=== PATIENT | male | born 1940 | race Caucasian/White ===

== ENCOUNTER 2017-04-07 12:42 | Inpatient (IN) | payer OTHER, BC ==
[2017-04-07] MEDS ORDERED: SODIUM CHLORIDE 0.9% 1000 ML INFUS.BAG IV STA (13:16)
--- NOTE | 2017-04-07 14:02 | PDOC ---
History of Present Illness - General History Source: Patient, Care Provider Exam Limitations: Dementia - History of Present Illness Initial Comments: 04/07/17 14:13 The patient is a 76 year old male, accompanied by home health aide,with a significant past medical history of hypertension, COPD, CHF Parkinsons, liposarcoma (s/p resection psoas muscle), anemia, MDS, Lewy body dementia, mild proliferative disease, and BPH who presents to the emergency department complaining of confusion since yesterday. Per home health aide, the patient has a history of altered mental status in the past, with his most recent episode beginning yesterday. The patient reports weakness in the upper extremity. He reports some constipation, but denies abdominal pain, nausea, vomiting, diarrhea , melena, or hematochezia. He denies any dysuria, hematuria, frequency, or urgency. The patient has been able to tolerate solids and fluids normally. He denies any recent travel or sick contacts. No history of TIA/CVA. Allergies: None reported Past Surgical History: Psoas muscle resection, Social History: ETOH and marijuana use. No other recreational drug use. PCP: Dr. Mikel Real <Mika Crow - Last Filed: 04/07/17 17:08> <Leslee Das - Last Filed: 04/07/17 17:40> - General Chief Complaint: Altered Mental Status Stated Complaint: Altered Mental Status Time Seen by Provider: 04/07/17 13:03 NIH Stroke Scale - Initial Evaluation Level of consciousness: Alert Ask patient the month and their age: Answers both correctly Ask patient to open & close eyes; make fist and let go: Obeys both correctly Best gaze (horizontal eye movement): Normal Visual field testing: No visual field loss Facial paresis (Show teeth/raise eyebrows/close eyes tight): Normal symmetrical movement Motor Function: Left Arm: Normal Motor Function: Right Arm: Normal (extends arm 90 (or 45) degrees for 10 seconds without drift Motor Function: Left Leg: Normal (extends leg 30 degrees for 5 seconds without drift) Motor Function: Right Leg: Normal (extends leg 30 degrees for 5 seconds without drift) Limb Ataxia: No ataxia Sensory(Use pinprick test arms,legs,trunk,face/side to side): Normal Best language (Describe picture, name items, read sentences): No Aphasia Dysarthria (read several words): Normal articulation Extinction and Inattention: No abnormality - Total Score NIH Stroke Scale Score: 0 <Leslee Das - Last Filed: 04/07/17 17:40> tPA Exclusion checklist 3-4.5h - Thrombolytic Therapy Candidate Is patient eligible for thrombolytic therapy: No - Ineligibility reason(s) Reasons No tPA given: Outside of window - delayed arrival (sxs started day prior ) <Leslee Das - Last Filed: 04/07/17 17:40> Past History <Mika Crow - Last Filed: 04/07/17 17:08> - Past Medical History Anemia: No Asthma: No Cancer: Yes (LIPOSARCOMA resection psoas muscle) Cardiac Disorders: No CVA: No COPD: No CHF: No Dementia: Yes Diabetes: No GI Disorders: No Disorders: No HTN: No Hypercholesterolemia: No Liver Disease: No Seizures: No Thyroid Disease: No Other medical history: PARKINSONS, BPH - Surgical History Abdominal Surgery: Yes Appendectomy: No Cardiac Surgery: No Cholecystectomy: No Lung Surgery: No Neurologic Surgery: No Orthopedic Surgery: No - Psycho/Social/Smoking Cessation Hx Anxiety: No Suicidal Ideation: No Smoking Status: No Smoking History: Never smoked Have you smoked in the past 12 months: Yes Number of Cigarettes Smoked Daily: 0 If you are a former smoker, when did you quit?: 1989 Alcohol Use: No Drug/Substance Use Hx: No Substance Use Type: Alcohol, Marijuana Hx Substance Use Treatment: No <Leslee Das - Last Filed: 04/07/17 17:40> - Past Medical History Allergies/Adverse Reactions: Allergies Allergy/AdvReac Type Severity Reaction Status Date / Time No Known Allergies Allergy Verified 04/07/17 12:49 Home Medications: Ambulatory Orders Donepezil HCl [Aricept -] 5 mg PO HS 04/09/16 Duloxetine HCl [Cymbalta] 30 mg PO BID 04/09/16 Acetaminophen [Tylenol .Regular Strength -] 650 mg PO Q6H PRN #0 tablet Carbidopa/Levodopa *Cr* 25/100 [Sinemet *Cr* 25/100 -] 1 combo PO TIDCM #90 tablet.er 04/30/16 Carvedilol [Coreg -] 3.125 mg PO BID #60 tablet 04/30/16 Hydroxyurea [Hydrea 500Mg Capsule -] 500 mg PO BID #30 capsule 04/30/16 Valsartan [Diovan] 40 mg PO DAILY #30 tablet 04/30/16 Aspirin Coated [Ecotrin -] 81 mg PO DAILY tablet.ec 05/15/16 Finasteride 5 mg PO DAILY 04/07/17 Quetiapine Fumarate [Seroquel -] 25 mg PO HS 04/07/17 Tamsulosin HCl 0.4 mg PO DAILY 04/07/17 Review of Systems - Review of Systems Able to Perform ROS?: Yes Comments:: 04/07/17 14:13 GENERAL/CONSTITUTIONAL: Yes: +weakness. No fever or chills. HEAD, EYES, EARS, NOSE AND THROAT: No change in vision. No ear pain or discharge. No sore throat. CARDIOVASCULAR: No chest pain or shortness of breath. RESPIRATORY: No cough, wheezing, or hemoptysis. GASTROINTESTINAL: No nausea, vomiting, diarrhea or constipation. GENITOURINARY: No dysuria, frequency, or change in urination. MUSCULOSKELETAL: No joint or muscle swelling or pain. No neck or back pain. SKIN: No rash NEUROLOGIC: Yes: +altered mental status. No headache, vertigo, loss of consciousness, or change in strength/sensation. ENDOCRINE: No increased thirst. No abnormal weight change. HEMATOLOGIC/LYMPHATIC: No anemia, easy bleeding, or history of blood clots. ALLERGIC/IMMUNOLOGIC: No hives or skin allergy. <Mika Crow - Last Filed: 04/07/17 17:08> *Physical Exam - Vital Signs Last Vital Signs Temp Pulse Resp BP Pulse Ox 98.0 F 63 20 146/69 97 04/07/17 12:44 04/07/17 12:44 04/07/17 12:44 04/07/17 12:44 04/07/17 12:44 - Physical Exam Comments: 04/07/17 14:13 GENERAL: Awake, alert, and fully oriented, in no acute distress HEAD: No signs of trauma EYES: PERRLA, EOMI, sclera anicteric, conjunctiva clear ENT: Auricles normal inspection, hearing grossly normal, nares patent. Dry mucosa NECK: Normal ROM, supple, no lymphadenopathy, JVD, or masses LUNGS: Breath sounds equal, clear to auscultation bilaterally. No wheezes, and no crackles HEART: Regular rate and rhythm, normal S1 and S2, no murmurs, rubs or gallops ABDOMEN: Soft, nontender, normoactive bowel sounds. No guarding, no rebound. No masses EXTREMITIES: Normal range of motion, no edema. No clubbing or cyanosis. No cords , erythema, or tenderness. DP/PT pulses 2+ and symmetric. Strength 5/5 in upper and lower extremities. NEUROLOGICAL: Moves all extremities. Normal speech, normal gait. Face is symmetric. Cranial nerves intact. SKIN: Warm, Dry, normal turgor, no rashes or lesions noted. <Mika Crow - Last Filed: 04/07/17 17:08> - Vital Signs Last Vital Signs Temp Pulse Resp BP Pulse Ox 98.0 F 63 20 146/69 97 04/07/17 12:44 04/07/17 12:44 04/07/17 12:44 04/07/17 12:44 04/07/17 12:44 <Leslee Das - Last Filed: 04/07/17 17:40> Heart Score/ECG Review #1 General ECG Interpretation: Sinus Rhythm (sinus janice), Normal Rate (59), Normal Intervals, No acute ischemic changes - ECG Intrepretation Rhythm: Regular Rhythm - Halma Halma: Left Halma Deviation <Leslee Das - Last Filed: 04/07/17 17:40> ED Treatment Course - LABORATORY CBC & Chemistry Diagram: 04/07/17 14:11 04/07/17 14:11 - RADIOLOGY Radiograph Interpretation: 04/07/17 14:44 EXAM: CXR INTERPRETED BY: Dr. Kendall REVIEWED BY: Dr. Das IMPRESSION: Cardiomegaly without overt heart failure seen at this time. No infiltrates or consolidations seen. EXAM: Head CT INTERPRETED BY: Dr. Kendall REVIEWED BY: Dr. Das IMPRESSION: Fluid in several left mastoid air cells. 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 Small left pontine lacunar infarct, possibly but not definitively new. Correlate with MRI. Otherwise normal noncontrast CT of the brain except for involutional and periventricular white matter changes. <Mika Crow - Last Filed: 04/07/17 17:08> - LABORATORY CBC & Chemistry Diagram: 04/07/17 14:11 04/07/17 14:11 - RADIOLOGY Radiology Studies Ordered: Category Date Time Status HEAD CT WITHOUT CONTRAST [CT] Stat CT Scan 04/07/17 13:20 Ordered CHEST X-RAY PORTABLE* [RAD] Stat Radiology 04/07/17 13:18 Completed <Leslee Das - Last Filed: 04/07/17 17:40> Medical Decision Making - Medical Decision Making 04/07/17 16:43 First call placed to Dr. Mikel Real at 16:42. Awaiting call back. Second call placed to Dr. Real at 17:07. Awaiting call back. Case discussed with Dr. Mikel Real at 17:09. <Mika Crow - Last Filed: 04/07/17 17:08> - Medical Decision Making 04/07/17 13:57 76 yo male with h/o parkinsons, HTN, blood dyscrasia and thromobocytopenia here with confusion since yesterday, pt here with home health aid who provides additional information states noted pt was confused since yesteerday. no known fever, cough or chest pain. c/o generalized weakness. no focal deficit no change to speech. no diarreha. no prior cva. on exam awake, alert dry mucous membranes, lung clear bilat, heart Reg, no m/r/ g. abd soft NT ND. ext wwp nuero alert 5/5 all four ext. facies symmetric CN intact. plan ; differential: confusion, anemia, electrolyte abnormality infection such as uti or pna, plan ct head, labs, cxr ekg. will d/w pt pcp dr real. 04/07/17 17:11 d/w dr real, ct with age indeterminate cva possible old . non focal exam and sxs started yesterday. will admit to dr real for further workup ams. <Leslee Das - Last Filed: 04/07/17 17:40> *DC/Admit/Observation/Transfer - Attestations Scribe Attestion: 04/07/17 14:16 Documentation prepared by Mika Crow, acting as clinical medical transcriptionist for Leslee Das MD. <Mika Crow - Last Filed: 04/07/17 17:08> - Discharge Dispostion Admit: Yes <Leslee Das - Last Filed: 04/07/17 17:40> Diagnosis at time of Disposition: Altered mental status - Referrals Referrals: Mikel Real MD [Primary Care Provider] -
[2017-04-07 14:27] LABS: EOSINOPHIL 1.5 % (0-4.5); MCH 31.2 pg (25.7-33.7); MCHC 33.7 g/dl (32.0-35.9); MEAN CELL VOLUME 92.7 fl (80-96); NEUTROPHILS 71.8 % (42.8-82.8); PLATELET COUNT 388 K/MM3 (134-434); RDW 17.3 % (11.9-15.9); WHITE BLOOD COUNT 8.3 K/mm3 (4.0-10.0)
[2017-04-07 14:33] LABS: URINE APPEARANCE CLEAR; URINE BILIRUBIN NEGATIVE (NEGATIVE); URINE BLOOD NEGATIVE (NEGATIVE); URINE COLOR YELLOW; URINE GLUCOSE (UA) NEGATIVE (NEGATIVE); URINE KETONE TRACE (NEGATIVE); URINE LEUK ESTERASE NEGATIVE (NEGATIVE); URINE NITRITE NEGATIVE (NEGATIVE); URINE UROBILINOGEN NEGATIVE E.U./dl (0.2-1.0)
[2017-04-07 14:36] LABS: URINE PROTEIN 1+ (NEGATIVE)
[2017-04-07 14:43] LABS: VENOUS BLOOD GAS HCO3 23.5 meq/L (19-25); VENOUS PH 7.44 (7.32-7.42)
[2017-04-07 14:48] LABS: INR 1.33 (0.82-1.09); PROTHROMBIN TIME (PATIENT) 14.7 SEC (9.98-11.88)
[2017-04-07 14:51] LABS: ACTIVATED PTT 36.5 SECONDS (26.9-34.4)
[2017-04-07 14:57] LABS: ALBUMIN 3.6 g/dl (3.4-5.0); ALK PHOS 75 U/L (45-117); ANION GAP 8 (8-16); BILIRUBIN,TOTAL 0.7 mg/dL (0.2-1.0); CALCIUM 8.5 mg/dL (8.5-10.1); CO2 26 mmol/L (21-32); CREATININE 0.7 mg/dL (0.7-1.3); GLUCOSE,RANDOM 92 mg/dL (74-106); SGOT/AST 19 U/L (15-37); SGPT/ALT 17 U/L (12-78)
[2017-04-07 14:59] LABS: TROPONIN I < 0.02 ng/ml (0.00-0.05)
[2017-04-07 15:51] LABS: URINE MUCUS RARE; URINE RBC <1 /hpf (0-3); URINE WBC 1 /hpf (3-5)
--- NOTE | 2017-04-07 23:35 | HP ---
Admitting History and Physical - Primary Care Physician PCP: Mikel Real - Admission Chief Complaint: Confusion. Palpitations History of Present Illness: Pt's called today that pt is confused since yesterday and c/o papitations; she called pt's Neurologist that adviced PCP visit and UA. I adviced pt's to take him to ER [facility]. In ER he was found to have abnormal Head CT, probable new CVA and was admitted. 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, [employer]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 [employer] Medical History of Recent Travel: No Home Medications - Allergies Allergies/Adverse Reactions: Allergies Allergy/AdvReac Type Severity Reaction Status Date / Time No Known Allergies Allergy Verified 04/07/17 12:49 - Home Medications Home Medications: Ambulatory Orders Donepezil HCl [Aricept -] 5 mg PO HS 04/09/16 Duloxetine HCl [Cymbalta] 30 mg PO BID 04/09/16 Acetaminophen [Tylenol .Regular Strength -] 650 mg PO Q6H PRN #0 tablet Carbidopa/Levodopa *Cr* 25/100 [Sinemet *Cr* 25/100 -] 1 combo PO TIDCM #90 tablet.er 04/30/16 Carvedilol [Coreg -] 3.125 mg PO BID #60 tablet 04/30/16 Hydroxyurea [Hydrea 500Mg Capsule -] 500 mg PO BID #30 capsule 04/30/16 Valsartan [Diovan] 40 mg PO DAILY #30 tablet 04/30/16 Aspirin Coated [Ecotrin -] 81 mg PO DAILY tablet.ec 05/15/16 Finasteride 5 mg PO DAILY 04/07/17 Quetiapine Fumarate [Seroquel -] 25 mg PO HS 04/07/17 Tamsulosin HCl 0.4 mg PO DAILY 04/07/17 Review of Systems - Review of Systems Constitutional: denies: Chills, Fever Eyes: denies: Blurred Vision, Eye Pain, Recent Change in Vision HENT: denies: Difficult Swallowing, Ear Discharge, Ear Pain, Throat Pain Neck: denies: Decreased ROM, Stiffness, Tenderness Cardiovascular: reports: Palpitations (none now). denies: Chest Pain, Edema, Shortness of Breath Respiratory: denies: Cough, SOB Gastrointestinal: denies: Abdominal Pain, Constipation, Diarrhea, Nausea Genitourinary: denies: Burning, Discharge, Dysuria, Flank Pain, Frequency Integumentary: denies: Blister, Rash Neurological: reports: Confusion (earlier today). denies: Dizziness, Incoordination, Numbness, Parasthesia, Weakness Endocrine: denies: Excessive Sweating, Intolerance to Cold Physical Examination Vital Signs: Vital Signs Temperature 98 F 04/07/17 16:39 Pulse Rate 63 04/07/17 16:39 Respiratory Rate 16 04/07/17 16:39 Blood Pressure 158/85 04/07/17 16:39 O2 Sat by Pulse Oximetry (%) 97 04/07/17 16:39 Constitutional: Yes: No Distress, Calm Eyes: Yes: Conjunctiva Clear, EOM Intact, PERRL HENT: Yes: Normocephalic. No: Epistaxis, Rhinnorhea Neck: Yes: Trachea Midline. No: Lymphadenopathy Cardiovascular: Yes: Regular Rate and Rhythm, S1, S2 Respiratory: Yes: Regular, CTA Bilaterally. No: Rales Gastrointestinal: Yes: Normal Bowel Sounds, Soft. No: Palpable Mass, Tenderness ...Rectal Exam: No: Deferred Musculoskeletal: No: Back Pain, Joint Stiffness, Joint Swelling, Muscle Pain Edema: No Integumentary: No: Jaundice, Rash, Skin Tear Neurological: Yes: Alert, Oriented, Other (motor and sensory symmetric evaluation in UE/ LE/ face) Psychiatric: Yes: Alert, Oriented Labs: noted Imaging - Results Chest X-ray: Report Reviewed Cat Scan: Report Reviewed Problem List - Problems (1) Altered mental status Code(s): R41.82 - ALTERED MENTAL STATUS, UNSPECIFIED (2) Lewy body dementia Code(s): G31.83 - DEMENTIA WITH LEWY BODIES F02.80 - DEMENTIA IN OTH DISEASES CLASSD ELSWHR W/O BEHAVRL DISTURB Qualifiers : Dementia behavioral disturbance: without behavioral disturbance Qualified Code(s): G31.83 - Dementia with Lewy bodies; F02.81 - Dementia in other diseases classified elsewhere with behavioral disturbance (3) CVA (cerebral vascular accident) Code(s): I63.9 - CEREBRAL INFARCTION, UNSPECIFIED (4) Hypertension Code(s): I10 - ESSENTIAL (PRIMARY) HYPERTENSION (5) Parkinson disease Code(s): G20 - PARKINSON'S DISEASE (6) Myeloproliferative disease Code(s): D47.1 - CHRONIC MYELOPROLIFERATIVE DISEASE Assessment/Plan Admit to monitor bed Neuro Consult Cardio Consult Neuro checks fall precautions AM labs
[2017-04-07] MEDS ORDERED: ACETAMINOPHEN 325 MG TABLET (FP) PO PRN (23:46)
[2017-04-08] MEDS ORDERED: CARVEDILOL 3.125 MG TABLET (FP) ONE (00:16)
[2017-04-08] MEDS ORDERED: DULoxetine HCL 30 MG CAPSULE.DR (FP) PO ONE (00:17)
[2017-04-08] MEDS: DULoxetine HCL 30 MG CAPSULE.DR (FP) PO SCH ×3 (00:22→21:53)
[2017-04-08] MEDS: CARVEDILOL 3.125 MG TABLET (FP) PO SCH ×3 (00:22→21:53)
[2017-04-08] MEDS: HYDROXYUREA 500 MG CAPSULE PO SCH ×3 (02:30→21:53)
[2017-04-08 06:58] LABS: MCH 31.4 pg (25.7-33.7); MCHC 34.1 g/dl (32.0-35.9); MEAN PLT VOLUME 9.8 fl (7.5-11.1); PLATELET COUNT 368 K/MM3 (134-434); RDW 16.8 % (11.9-15.9); WHITE BLOOD COUNT 7.6 K/mm3 (4.0-10.0)
[2017-04-08 07:42] LABS: ALBUMIN 3.3 g/dl (3.4-5.0); ANION GAP 6 (8-16); CALCIUM 8.3 mg/dL (8.5-10.1); CO2 26 mmol/L (21-32); CREATININE 0.7 mg/dL (0.7-1.3); GLUCOSE,RANDOM 87 mg/dL (74-106); SGOT/AST 17 U/L (15-37); SGPT/ALT 19 U/L (12-78)
[2017-04-08 07:43] LABS: ALK PHOS 73 U/L (45-117); BILIRUBIN,TOTAL 0.7 mg/dL (0.2-1.0); TOT PROT 5.7 g/dl (6.4-8.2)
[2017-04-08] MEDS ORDERED: TAMSULOSIN HCL 0.4 MG CAP.ER.24H (FP) ONE (08:33)
[2017-04-08] MEDS ORDERED: CARBIDOPA/LEVODOPA 25/100 TABLET (FP) ONE (08:34)
[2017-04-08] MEDS: TAMSULOSIN HCL 0.4 MG CAP.ER.24H (FP) PO SCH (08:38)
[2017-04-08] MEDS: VALSARTAN 40 MG TABLET (FP) PO SCH (10:01)
[2017-04-08] MEDS: FINASTERIDE 5 MG TABLET (FP) PO SCH (10:01)
[2017-04-08] MEDS: ASPIRIN COATED 81 MG TABLET.EC PO SCH (10:01)
[2017-04-08 10:48] LABS: C-REACTIVE PROTEIN < 0.3 MG/DL (0.00-0.3)
[2017-04-08 11:15] LABS: TROPONIN I < 0.02 ng/ml (0.00-0.05)
--- NOTE | 2017-04-08 12:24 | PN ---
Progress Note, Physician History of Present Illness: Pt. w/o palpitations, motor or sensory deficit, SOB, CP, blurry vision. Pt w/o N, V, abd pain. Pt last night HIDE CLEANER at bedside; pt seem at baseline to myself and HIDE CLEANER (knows pt for over 6 months) - Current Medication List Current Medications: Active Medications Acetaminophen (Tylenol -) 650 mg PO Q6H PRN PRN Reason: FEVER OR PAIN Aspirin (Ecotrin -) 81 mg PO DAILY [facility] Last Admin: 04/08/17 10:01 Dose: 81 mg Carbidopa/Levodopa (Sinemet *Cr* 25/100 -) 1 combo PO TIDCM [facility] Last Admin: 04/08/17 12:00 Dose: 1 combo Carvedilol (Coreg -) 3.125 mg PO BID [facility] Last Admin: 04/08/17 10:01 Dose: 3.125 mg Donepezil HCl (Aricept -) 5 mg PO [facility] Duloxetine HCl (Cymbalta -) 30 mg PO BID [facility] Last Admin: 04/08/17 10:01 Dose: 30 mg Finasteride (Proscar -) 5 mg PO DAILY [facility] Last Admin: 04/08/17 10:01 Dose: 5 mg Hydroxyurea (Hydrea -) 500 mg PO BID [facility] Last Admin: 04/08/17 10:01 Dose: 500 mg Quetiapine Fumarate (Seroquel -) 25 mg PO [facility] Tamsulosin HCl (Flomax -) 0.4 mg PO DAILY@0830 [facility] Last Admin: 04/08/17 08:38 Dose: 0.4 mg Valsartan (Diovan -) 40 mg PO DAILY [facility] Last Admin: 04/08/17 10:01 Dose: 40 mg - Objective Vital Signs: Vital Signs Temperature 98 F 04/08/17 10:00 Pulse Rate 63 04/08/17 10:00 Respiratory Rate 16 04/08/17 10:00 Blood Pressure 165/98 04/08/17 10:00 O2 Sat by Pulse Oximetry (%) 98 04/08/17 10:00 Constitutional: Yes: No Distress, Calm Cardiovascular: Yes: Regular Rate and Rhythm, S1, S2 Respiratory: Yes: Regular, CTA Bilaterally. No: Rales Gastrointestinal: Yes: Normal Bowel Sounds, Soft. No: Palpable Mass, Tenderness Edema: No Neurological: Yes: Alert, Oriented, Other (motor and sensory evluation is symmetric bilat. in UE/ LE/ face) Labs: CBC, BMP 04/08/17 06:30 04/08/17 06:30 INR, PTT INR 1.33 (0.82-1.09) H 04/07/17 14:11 Problem List - Problems (1) Altered mental status Code(s): R41.82 - ALTERED MENTAL STATUS, UNSPECIFIED (2) Lewy body dementia Code(s): G31.83 - DEMENTIA WITH LEWY BODIES F02.80 - DEMENTIA IN OTH DISEASES CLASSD ELSWHR W/O BEHAVRL DISTURB Qualifiers : Dementia behavioral disturbance: without behavioral disturbance Qualified Code(s): G31.83 - Dementia with Lewy bodies; F02.81 - Dementia in other diseases classified elsewhere with behavioral disturbance (3) CVA (cerebral vascular accident) Code(s): I63.9 - CEREBRAL INFARCTION, UNSPECIFIED (4) Hypertension Code(s): I10 - ESSENTIAL (PRIMARY) HYPERTENSION (5) Parkinson disease Code(s): G20 - PARKINSON'S DISEASE (6) Myeloproliferative disease Code(s): D47.1 - CHRONIC MYELOPROLIFERATIVE DISEASE Assessment/Plan Admit to monitor bed; r/o arrhythmia. Neuro Consult- ot /fu if additional imaging study is needed Cardio Consult Neuro checks fall precautions case was d/w pt's AM labs
--- NOTE | 2017-04-08 12:36 | EKG ---
Test Reason : Blood Pressure : / mmHG Vent. Rate : 059 BPM Atrial Rate : 059 BPM P-R Int : 160 ms QRS Dur : 084 ms QT Int : 428 ms P-R-T Axes : 047 -06 025 degrees QTc Int : 423 ms SINUS BRADYCARDIA OTHERWISE NORMAL ECG WHEN COMPARED WITH ECG OF 08-MAY-2016 20:33, SINUS RHYTHM HAS REPLACED JUNCTIONAL RHYTHM Confirmed by JONATHAN SELLERS MD ([id number]) on 04/08/2017 12:35:29 PM Referred By: Confirmed By:JONATHAN SELLERS MD
[2017-04-08 13:46] LABS: TROPONIN I < 0.02 ng/ml (0.00-0.05)
[2017-04-08 15:43] VITALS: BMI 21.7
[2017-04-08] MEDS ORDERED: DONEPEZIL HCL 5 MG TABLET (FP) PO SCH (22:00)
[2017-04-08] MEDS ORDERED: QUEtiapine FUMARATE 25 MG TABLET (FP) PO SCH (22:00)
--- NOTE | 2017-04-08 22:00 | CONSULT ---
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 Followed at [facility] as Lewy Body Dementia and / or atypical Parkinsonism. Clinical features favoring the later include hyposmia , associated nocturnal leg pains c/w PD-Associated RLS, dysautonomia and L-Dopa responsiveness. Last seen by me 04/24/16 when I initiated treatment with L-Dopa which improved gait and has been continued in those initial doses. Other meds include donepezil (5 mg qHS) and seroquel (25 mg QHS). Now admitted with increased confusion according to his Home health aide. No signs of infection. His is at bedside and wants to take him home. [place]ESKA: Thin, No bruits, No head trauma. Neuro: Appears confused and bemused. Does not know he is in [facility] or the month or year. Confused fluent speech. + Glabella, snout and grasps CN normal aside from episodic jaw tremor No limb tremors. + cogwheel rigidity. Normal strength and reflexes. Normal sensation. Festinating, shuffling gait. IMP: Alpha Synuclein spectrum disorder with Parkinsonism, OMS, Psychosis. SUGGEST: OK to D/C to home. As an outpatient I would: Gradually increase L-Dopa towards CR 50 /200 TID at 7,12, 5 Increase donepezil to 10 mg and give after breakfast to avoid insomnia Increase seroquel to 50 mg QHS and, Begin Pimavanserin 34 mg q AM vs visual hallucinations. THank you very much, Michael Tapia MD
--- NOTE | 2017-04-09 02:27 | CON.CARD ---
Consult Consult Specialty:: cardiology Reason for Consultation:: HTN; confusion - History of Present Illness Chief Complaint: Pt is pleasant; disoriented to time, place, reason for being in hospital. History of Present Illness: The patient is a 76 year old male, accompanied by home health aide,with a significant past medical history of hypertension, COPD, CHF Parkinsons, liposarcoma (s/p resection psoas muscle), anemia, MDS, Lewy body dementia, mild proliferative disease, and BPH who presents to the emergency department complaining of confusion since yesterday. Per home health aide, the patient has a history of altered mental status in the past, with his most recent episode beginning yesterday. The patient reports weakness in the upper extremity. He reports some constipation, but denies abdominal pain, nausea, vomiting, diarrhea , melena, or hematochezia. He denies any dysuria, hematuria, frequency, or urgency. The patient has been able to tolerate solids and fluids normally. He denies any recent travel or sick contacts. No history of TIA/CVA. Allergies: None reported Past Surgical History: Psoas muscle resection, Social History: ETOH and marijuana use. No other recreational drug use. PCP: Dr. 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. 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, [employer] History of Recent Travel: No Home Medications - Allergies Allergies/Adverse Reactions: Allergies Allergy/AdvReac Type Severity Reaction Status Date / Time No Known Allergies Allergy Verified 04/07/17 12:49 - Home Medications Home Medications: Ambulatory Orders Donepezil HCl [Aricept -] 5 mg PO HS 04/09/16 Duloxetine HCl [Cymbalta] 30 mg PO BID 04/09/16 Acetaminophen [Tylenol .Regular Strength -] 650 mg PO Q6H PRN #0 tablet Carbidopa/Levodopa *Cr* 25/100 [Sinemet *Cr* 25/100 -] 1 combo PO TIDCM #90 tablet.er 04/30/16 Carvedilol [Coreg -] 3.125 mg PO BID #60 tablet 04/30/16 Hydroxyurea [Hydrea 500Mg Capsule -] 500 mg PO BID #30 capsule 04/30/16 Valsartan [Diovan] 40 mg PO DAILY #30 tablet 04/30/16 Aspirin Coated [Ecotrin -] 81 mg PO DAILY tablet.ec 05/15/16 Finasteride 5 mg PO DAILY 04/07/17 Quetiapine Fumarate [Seroquel -] 25 mg PO HS 04/07/17 Tamsulosin HCl 0.4 mg PO DAILY 04/07/17 Review of Systems - Review of Systems Constitutional: reports: No Symptoms Eyes: reports: No Symptoms HENT: reports: No Symptoms Neck: reports: No Symptoms Cardiovascular: reports: No Symptoms Respiratory: reports: No Symptoms Gastrointestinal: reports: No Symptoms Genitourinary: reports: No Symptoms Breasts: reports: No Symptoms Reported Musculoskeletal: reports: Joint Pain (shoulder) Integumentary: reports: No Symptoms Neurological: reports: Confusion, Pre-Existing Deficit Endocrine: reports: No Symptoms Hematology/Lymphatic: reports: No Symptoms Psychiatric: reports: Other (dementia) - Risk Factors Known Risk Factors: Yes: Age, Gender, Hypertension, Other (dementia) Vital Signs: Vital Signs Temperature 98.7 F 04/09/17 02:08 Pulse Rate 55 L 04/09/17 02:08 Respiratory Rate 18 04/09/17 02:08 Blood Pressure 140/81 04/09/17 02:08 O2 Sat by Pulse Oximetry (%) 98 04/08/17 21:00 Constitutional: Yes: Calm Eyes: Yes: WNL HENT: Yes: WNL Neck: Yes: WNL Respiratory: Yes: WNL Gastrointestinal: Yes: WNL Renal/: No: Anuria Cardiovascular: Yes: Regular Rate and Rhythm JVD: No Carotid Bruit: No PMI: Non-Displaced Heart Sounds: Yes: S1, S2, S4 Murmur: Yes: Systolic Murmur, Grade 2 Musculoskeletal: Yes: Joint Stiffness, Muscle Weakness Extremities: Yes: WNL Edema: No Peripheral Pulses WNL: Yes Integumentary: Yes: WNL Neurological: Yes: Confusion, Weakness Psychiatric: Yes: Other - Other Data Labs, Other Data: CBC, BMP 04/08/17 06:30 04/08/17 06:30 INR, PTT INR 1.33 (0.82-1.09) H 04/07/17 14:11 Troponin, BNP 04/08/17 04/08/17 06:30 12:50 Troponin I < 0.02 < 0.02 Troponin, BNP 04/08/17 04/08/17 06:30 12:50 Troponin I < 0.02 < 0.02 Ejection Fraction %: LVEF > or = 40 % Imaging - Results EKG: Image Reviewed (sinus bradycardia) Problem List - Problems (1) Altered mental status Assessment/Plan: extensive hx of dementia, MDS. F/u with neurologist. Code(s): R41.82 - ALTERED MENTAL STATUS, UNSPECIFIED (2) Hypertension Assessment/Plan: On carvedilol and valsartan; f/u BP and HR serially (sinus bradycardia on EKG; on beta blockers; Code(s): I10 - ESSENTIAL (PRIMARY) HYPERTENSION (3) Parkinson disease Code(s): G20 - PARKINSON'S DISEASE (4) Anemia Code(s): D64.9 - ANEMIA, UNSPECIFIED (5) Diastolic dysfunction without heart failure Assessment/Plan: TNI < 0.02 x 2. CXR: no acute CHF. On carvedilol and valsartan. F/u BP serially. TSH WNL (2016); f/u lipids. Code(s): I51.9 - HEART DISEASE, UNSPECIFIED (6) Lewy body dementia Code(s): G31.83 - DEMENTIA WITH LEWY BODIES F02.80 - DEMENTIA IN OTH DISEASES CLASSD ELSWHR W/O BEHAVRL DISTURB Qualifiers : Dementia behavioral disturbance: without behavioral disturbance Qualified Code(s): G31.83 - Dementia with Lewy bodies; F02.81 - Dementia in other diseases classified elsewhere with behavioral disturbance (7) Myeloproliferative disease Code(s): D47.1 - CHRONIC MYELOPROLIFERATIVE DISEASE (8) Moderate aortic regurgitation Code(s): I35.1 - NONRHEUMATIC AORTIC (VALVE) INSUFFICIENCY
[2017-04-09 07:59] LABS: MCH 31.4 pg (25.7-33.7); MCHC 33.9 g/dl (32.0-35.9); MEAN CELL VOLUME 92.6 fl (80-96); MEAN PLT VOLUME 10.3 fl (7.5-11.1); PLATELET COUNT 357 K/MM3 (134-434); RDW 16.7 % (11.9-15.9); WHITE BLOOD COUNT 6.5 K/mm3 (4.0-10.0)
[2017-04-09 08:01] LABS: ANION GAP 9 (8-16); CALCIUM 8.5 mg/dL (8.5-10.1); CO2 26 mmol/L (21-32); CREATININE 0.7 mg/dL (0.7-1.3); GLUCOSE,RANDOM 90 mg/dL (74-106)
[2017-04-09] MEDS: TAMSULOSIN HCL 0.4 MG CAP.ER.24H (FP) PO SCH (08:21)
[2017-04-09] MEDS: HYDROXYUREA 500 MG CAPSULE PO SCH (09:24)
[2017-04-09] MEDS: CARVEDILOL 3.125 MG TABLET (FP) PO SCH (09:24)
[2017-04-09] MEDS: VALSARTAN 40 MG TABLET (FP) PO SCH (09:24)
[2017-04-09] MEDS: FINASTERIDE 5 MG TABLET (FP) PO SCH (09:24)
[2017-04-09] MEDS: ASPIRIN COATED 81 MG TABLET.EC PO SCH (09:24)
[2017-04-09] MEDS: DULoxetine HCL 30 MG CAPSULE.DR (FP) PO SCH (09:24)
--- NOTE | 2017-04-09 12:07 | PN ---
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 History of Present Illness: The patient is a 76 year old male, accompanied by home health aide,with a significant past medical history of hypertension, COPD, CHF Parkinsons, liposarcoma (s/p resection psoas muscle), anemia, MDS, Lewy body dementia, mild proliferative disease, and BPH who presents to the emergency department complaining of confusion since yesterday. Per home health aide, the patient has a history of altered mental status in the past, with his most recent episode beginning yesterday. The patient reports weakness in the upper extremity. He reports some constipation, but denies abdominal pain, nausea, vomiting, diarrhea , melena, or hematochezia. He denies any dysuria, hematuria, frequency, or urgency. The patient has been able to tolerate solids and fluids normally. He denies any recent travel or sick contacts. No history of TIA/CVA. Allergies: None reported Past Surgical History: Psoas muscle resection, Social History: ETOH and marijuana use. No other recreational drug use. PCP: Dr. 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 - Current Medication List Current Medications: Active Medications Acetaminophen (Tylenol -) 650 mg PO Q6H PRN PRN Reason: FEVER OR PAIN Aspirin (Ecotrin -) 81 mg PO DAILY [facility] Last Admin: 04/09/17 09:24 Dose: 81 mg Carbidopa/Levodopa (Sinemet *Cr* 25/100 -) 1 combo PO TIDCM [facility] Last Admin: 04/09/17 08:21 Dose: 1 combo Carvedilol (Coreg -) 3.125 mg PO BID [facility] Last Admin: 04/09/17 09:24 Dose: 3.125 mg Donepezil HCl (Aricept -) 5 mg PO HS [facility] Last Admin: 04/08/17 21:53 Dose: 5 mg Duloxetine HCl (Cymbalta -) 30 mg PO BID [facility] Last Admin: 04/09/17 09:24 Dose: 30 mg Finasteride (Proscar -) 5 mg PO DAILY [facility] Last Admin: 04/09/17 09:24 Dose: 5 mg Hydroxyurea (Hydrea -) 500 mg PO BID [facility] Last Admin: 04/09/17 09:24 Dose: 500 mg Quetiapine Fumarate (Seroquel -) 25 mg PO HS [facility] Last Admin: 04/08/17 21:53 Dose: 25 mg Tamsulosin HCl (Flomax -) 0.4 mg PO DAILY@0830 [facility] Last Admin: 04/09/17 08:21 Dose: 0.4 mg Valsartan (Diovan -) 40 mg PO ONCE ONE Stop: 04/09/17 11:55 Valsartan (Diovan -) 80 mg PO DAILY [facility] - Objective Vital Signs: Vital Signs Temperature 98 F 04/09/17 10:49 Pulse Rate 62 04/09/17 10:49 Respiratory Rate 18 04/09/17 10:49 Blood Pressure 160/80 04/09/17 10:49 O2 Sat by Pulse Oximetry (%) 100 04/09/17 09:00 Labs: CBC, BMP 04/09/17 06:00 04/09/17 06:00 INR, PTT INR 1.33 (0.82-1.09) H 04/07/17 14:11 Problem List - Problems (1) Altered mental status Code(s): R41.82 - ALTERED MENTAL STATUS, UNSPECIFIED (2) Hypertension Assessment/Plan: On carvedilol and valsartan; f/u BP and HR serially (sinus bradycardia on EKG; on beta blockers; Increase valsartan to 80 mb daily. From a cardiac perspective, pt may be followed as an outpatient. Code(s): I10 - ESSENTIAL (PRIMARY) HYPERTENSION (3) Parkinson disease Code(s): G20 - PARKINSON'S DISEASE (4) Anemia Code(s): D64.9 - ANEMIA, UNSPECIFIED (5) Diastolic dysfunction without heart failure Code(s): I51.9 - HEART DISEASE, UNSPECIFIED (6) Lewy body dementia Code(s): G31.83 - DEMENTIA WITH LEWY BODIES F02.80 - DEMENTIA IN OTH DISEASES CLASSD ELSWHR W/O BEHAVRL DISTURB Qualifiers : Dementia behavioral disturbance: without behavioral disturbance Qualified Code(s): G31.83 - Dementia with Lewy bodies; F02.81 - Dementia in other diseases classified elsewhere with behavioral disturbance (7) Myeloproliferative disease Code(s): D47.1 - CHRONIC MYELOPROLIFERATIVE DISEASE (8) Moderate aortic regurgitation Code(s): I35.1 - NONRHEUMATIC AORTIC (VALVE) INSUFFICIENCY
[2017-04-09] MEDS ORDERED: VALSARTAN 40 MG TABLET (FP) PO ONE (12:15)
--- NOTE | 2017-04-09 14:30 | DS ---
Physical Examination Vital Signs: Vital Signs Temperature 97.8 F 04/09/17 13:06 Pulse Rate 60 04/09/17 13:06 Respiratory Rate 18 04/09/17 13:06 Blood Pressure 146/84 04/09/17 13:06 O2 Sat by Pulse Oximetry (%) 100 04/09/17 09:00 Findings/Remarks: Pt w/o CP, palp, dizziness, SOB, abd pain, N, V, motor weakness or sensation deficit Constitutional: Yes: No Distress, Calm Cardiovascular: Yes: Regular Rate and Rhythm, S1, S2 Respiratory: Yes: Regular, CTA Bilaterally Gastrointestinal: Yes: Normal Bowel Sounds, Soft. No: Palpable Mass, Tenderness Edema: No Neurological: Yes: Alert, Oriented, Other (motor and sensory evaluation is symmetric in UE/ LE/ face) Labs: CBC, BMP 04/09/17 06:00 04/09/17 06:00 Discharge Summary Reason For Visit: Altered Mental Status Current Active Problems Altered mental status (Acute) Hypertension (Acute) Moderate aortic regurgitation (Acute) Parkinson disease (Acute) Procedures: Principal: Head CT scan Other Procedures: CXR. EKG Hospital Course: Pt came to ER with confusion, palpitations. Pt. was observed on Telemetry, had negative CE, no significant arrhythmia on telemetry. Pt MS at baseline, no signs of infection. Pt was seen by Cardio ( Dr. Del Real) and Neuro (Dr. Tapia) and was cleared for DC, and outpatient f/u was recommended. - Instructions Diet, Activity, Other Instructions: Low salt Keep well hydrated. Increase water intake Referrals: Michael Tapia MD [Staff Physician] - (In 1 week. Pt can follow up with own Neurologist.) Mikel Real MD [Primary Care Provider] - (in 1 to 2 weeks) Kishore Del Real MD [Staff Physician] - (in 1-2 weeks) Disposition: HOME - Home Medications Comprehensive Discharge Medication List: Ambulatory Orders Donepezil HCl [Aricept -] 5 mg PO HS 04/09/16 Duloxetine HCl [Cymbalta] 30 mg PO BID 04/09/16 Acetaminophen [Tylenol .Regular Strength -] 650 mg PO Q6H PRN #0 tablet Carbidopa/Levodopa *Cr* 25/100 [Sinemet *Cr* 25/100 -] 1 combo PO TIDCM #90 tablet.er 04/30/16 Carvedilol [Coreg -] 3.125 mg PO BID #60 tablet 04/30/16 Hydroxyurea [Hydrea 500Mg Capsule -] 500 mg PO BID #30 capsule 04/30/16 Valsartan [Diovan] 40 mg PO DAILY #30 tablet 04/30/16 Aspirin Coated [Ecotrin -] 81 mg PO DAILY tablet.ec 05/15/16 Finasteride 5 mg PO DAILY 04/07/17 Quetiapine Fumarate [Seroquel -] 25 mg PO HS 04/07/17 Tamsulosin HCl 0.4 mg PO DAILY 04/07/17
[2017-04-09 14:41] VITALS: BP 136/76; PULSE 62; TEMP 98
[2017-04-10] MEDS ORDERED: VALSARTAN 80 MG TABLET (UD) PO SCH (10:00)
== END 2017-04-09 15:26 | disposition home or self-care (01) | DRG 57 ==
LOC: JER 12:42 → JERBED 17:12 → J4W 04-08 13:21
PROVIDERS: ADMIT Specialist; ATTEND Specialist
DX: G31.83 Neurocognitive disorder with Lewy bodies (principal); F02.81 Dementia in other diseases classified elsewhere, unspecified severity, with behavioral disturbance; D47.1 Chronic myeloproliferative disease; R41.82 Altered mental status, unspecified; I10 Essential (primary) hypertension; I35.1 Nonrheumatic aortic (valve) insufficiency; G20 Parkinson's disease; D64.9 Anemia, unspecified; N40.0 Benign prostatic hyperplasia without lower urinary tract symptoms
CPT/HCPCS: 36415; 70450-TC; 71010-TC; 80048; 80053; 81003; 81015; 82550; 82803; 83605; 84484; 85025; 85027; 85610; 85651; 85730; 86140; 86850; 86900; 86901; 87040; 87086; 93005; 93010; 99285-25; J8999

== ENCOUNTER 2017-04-19 10:27 | Emergency (ER) | payer OTHER, BC ==
[2017-04-19 10:46] VITALS: TEMP 98.4; BMI 24.7
--- NOTE | 2017-04-19 10:55 | PDOC ---
*Physical Exam - Vital Signs Last Vital Signs Temp Pulse Resp BP Pulse Ox 98.4 F 74 18 123/74 100 04/19/17 10:41 04/19/17 10:41 04/19/17 10:41 04/19/17 10:41 04/19/17 10:41 Heart Score/ECG Review #1 ECG reviewed & interpreted by me at: 11:04 General ECG Interpretation: Sinus Rhythm, Normal Rate, Normal Intervals, No acute ischemic changes ED Treatment Course - LABORATORY CBC & Chemistry Diagram: 04/19/17 11:02 04/19/17 11:02 - RADIOLOGY Radiology Studies Ordered: Category Date Time Status CERVICAL SPINE CT W/O CONTR [CT] Stat CT Scan 04/19/17 10:[address] WITHOUT CONTRAST [CT] Stat CT Scan 04/19/17 10:47 Ordered CHEST - PA [RAD] Stat Radiology 04/19/17 10:47 Ordered HIP & PELVIS-RIGHT [RAD] Stat Radiology 04/19/17 10:47 Ordered Medical Decision Making - Medical Decision Making 04/19/17 10:49 This is a 76 yo M with a history of Parkinsons disease, Lewy body dementia Pt presents to the ER with a complaint of right hip pain Pt attempted to get into bed last night the bed railing collapsed as did the patient He denies head trauma He was placed back into bed by his aid Pt was ambulatory (minimally) with a walker Pt has right buttock bruising pain with right leg movement s/p left hip replacement in the past Will do: head ct cervical spine CT xray hip/pelvis RE assess Anticipate admission 04/19/17 14:20 CT demonstrates degloving injury Info relayed to patient's orthopedist He does not think this requires admission Pt should be harlan wrapped can discharge to home *DC/Admit/Observation/Transfer Diagnosis at time of Disposition: Thigh hematoma - Discharge Dispostion Condition at time of disposition: Good - Referrals Referrals: Mikel Real MD [Primary Care Provider] - - Patient Instructions Printed Discharge Instructions: DI for Hematoma (Bruise) Additional Instructions: Please keep HARLAN bandage in place for swelling and follow up with Dr Krueger in office this week
[2017-04-19 11:25] LABS: BASOPHIL 0.9 % (0-2.0); EOSINOPHIL 0.6 % (0-4.5); MCH 30.9 pg (25.7-33.7); MEAN CELL VOLUME 93.5 fl (80-96); MEAN PLT VOLUME 10.2 fl (7.5-11.1); NEUTROPHILS 82.4 % (42.8-82.8); PLATELET COUNT 441 K/MM3 (134-434); RDW 17.4 % (11.9-15.9); WHITE BLOOD COUNT 12.4 K/mm3 (4.0-10.0)
[2017-04-19 11:43] LABS: INR 1.34 (0.82-1.09); PROTHROMBIN TIME (PATIENT) 14.8 SEC (9.98-11.88)
[2017-04-19 11:45] LABS: ALBUMIN 3.3 g/dl (3.4-5.0); ALK PHOS 72 U/L (45-117); ANION GAP 8 (8-16); BILIRUBIN,TOTAL 0.7 mg/dL (0.2-1.0); CALCIUM 8.5 mg/dL (8.5-10.1); CO2 25 mmol/L (21-32); CREATININE 0.6 mg/dL (0.7-1.3); GLUCOSE,RANDOM 118 mg/dL (74-106); SGOT/AST 14 U/L (15-37); SGPT/ALT 8 U/L (12-78); TOT PROT 5.8 g/dl (6.4-8.2)
--- NOTE | 2017-04-19 12:00 | PDOC ---
History of Present Illness - General Chief Complaint: Injury Stated Complaint: FALL Time Seen by Provider: 04/19/17 10:41 History Source: Patient, Family - History of Present Illness Occurred: reports: other (last night) Lower Extremity Pain Location: right: hip Method of Injury: Yes: fell Past History - Past Medical History Allergies/Adverse Reactions: Allergies Allergy/AdvReac Type Severity Reaction Status Date / Time No Known Allergies Allergy Verified 04/07/17 12:49 Home Medications: Ambulatory Orders Donepezil HCl [Aricept -] 5 mg PO HS 04/09/16 Duloxetine HCl [Cymbalta] 30 mg PO BID 04/09/16 Acetaminophen [Tylenol .Regular Strength -] 650 mg PO Q6H PRN #0 tablet Carbidopa/Levodopa *Cr* 25/100 [Sinemet *Cr* 25/100 -] 1 combo PO TIDCM #90 tablet.er 04/30/16 Carvedilol [Coreg -] 3.125 mg PO BID #60 tablet 04/30/16 Hydroxyurea [Hydrea 500Mg Capsule -] 500 mg PO BID #30 capsule 04/30/16 Aspirin Coated [Ecotrin -] 81 mg PO DAILY tablet.ec 05/15/16 Finasteride 5 mg PO DAILY 04/07/17 Quetiapine Fumarate [Seroquel -] 25 mg PO HS 04/07/17 Tamsulosin HCl 0.4 mg PO DAILY 04/07/17 Valsartan [Diovan] 80 mg PO DAILY tablet 04/09/17 Anemia: No Asthma: No Cancer: Yes (LIPOSARCOMA resection psoas muscle) Cardiac Disorders: No CVA: No COPD: No CHF: No Dementia: Yes Diabetes: No GI Disorders: No Disorders: No HTN: No Hypercholesterolemia: No Liver Disease: No Seizures: No Thyroid Disease: No - Surgical History Abdominal Surgery: Yes Appendectomy: No Cardiac Surgery: No Cholecystectomy: No Lung Surgery: No Neurologic Surgery: No Orthopedic Surgery: No - Psycho/Social/Smoking Cessation Hx Anxiety: No Suicidal Ideation: No Smoking Status: No Smoking History: Former smoker Have you smoked in the past 12 months: Yes Number of Cigarettes Smoked Daily: 0 If you are a former smoker, when did you quit?: 1989 Information on smoking cessation initiated: No Hx Alcohol Use: No Drug/Substance Use Hx: No Substance Use Type: Alcohol, Marijuana Hx Substance Use Treatment: No Review of Systems - Review of Systems Constitutional: No: Fever Respiratory: No: Shortness of Breath Cardiac (ROS): No: Chest Pain ABD/GI: No: Abdominal cramping Musculoskeletal: Yes: Joint Pain, Joint Swelling. No: Back Pain, Neck Pain Neurological: No: Headache, Dizziness *Physical Exam - Vital Signs Last Vital Signs Temp Pulse Resp BP Pulse Ox 98.4 F 74 18 123/74 100 04/19/17 10:41 04/19/17 10:41 04/19/17 10:41 04/19/17 10:41 04/19/17 10:41 - Physical Exam General Appearance: Yes: Appropriately Dressed. No: Apparent Distress HEENT: positive: Normal Voice Neck: positive: Supple. negative: Tender, Trachea midline Respiratory/Chest: positive: Lungs Clear, Normal Breath Sounds. negative: Respiratory Distress Cardiovascular: positive: Regular Rate, S1, S2 Gastrointestinal/Abdominal: positive: Soft. negative: Tender Extremity: positive: Normal Inspection Integumentary: positive: Dry, Warm Neurologic: positive: Fully Oriented, Alert, Normal Mood/Affect (large area of ecchymosis to lateral R thigh w/ localized swelling, pain to R hip w/ flexion, no shortening or rotation, LLE appears wnl) ED Treatment Course - LABORATORY CBC & Chemistry Diagram: 04/19/17 11:02 04/19/17 11:02 - ADDITIONAL ORDERS Additional order review: Laboratory Results 04/19/17 11:02 Sodium 143 Potassium 4.0 Chloride 110 H Carbon Dioxide 25 Anion Gap 8 BUN 25 H Creatinine 0.6 L Creat Clearance w eGFR > 60 Random Glucose 118 H D Calcium 8.5 Total Bilirubin 0.7 AST 14 L ALT 8 L D Alkaline Phosphatase 72 Total Protein 5.8 L Albumin 3.3 L 04/19/17 11:02 RBC 3.57 L MCV 93.5 MCHC 33.0 RDW 17.4 H MPV 10.2 Neutrophils % 82.4 Lymphocytes % 9.1 D Monocytes % 7.0 Eosinophils % 0.6 Basophils % 0.9 - RADIOLOGY Radiology Studies Ordered: Category Date Time Status LOWER EXTREMITY CT W/O CONTR [CT] Stat CT Scan 04/19/17 11:30 Ordered HIP & PELVIS-LEFT [RAD] Stat Radiology 04/19/17 11:10 Ordered SPINE-LUMBAR SACRAL [RAD] Stat Radiology 04/19/17 11:10 Ordered Medical Decision Making - Medical Decision Making 04/19/17 11:55 76-year-old male, h/o lewy body dementia, 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 As per , patient had a witnessed fall at home last night. States while climbing into bed, side rails suddenly collapsed, causing patient to lose balance and fall, landing mostly onto his right side. Family has since noticed bruising to right hip area. States patient was able to bear weight with cane last night, though limited. adamant that patient did not hit head and no reports of headache, visual changes , nausea, vomiting or dizziness. Patient on baby aspirin at home. Patient denies any other injuries to me at this time. See exam R hip pain s/p most likely mechanical fall based on hx Witnessed by family No head impact Stable and well francisco -XR -labs -dispo pending 04/19/17 12:54 CT read as hematoma w/ possible degloving injury (mejía-clemencia lesion) 04/19/17 13:36 Case d/w Dr Krueger who repaired pt's L hip last year, reviewed CT and states pt has large hematoma, not certain about degloving, rec that I placed an Nixon wrap to site and have pt f/u with him in office. No further intervention needed today as per MD, i.e evacuation of hematoma 04/19/17 13:39 04/19/17 13:42 04/19/17 14:[address] Soriano who is aware of patient's recurrent sarcoma and CT finding. States no intervention needed today, patient to follow-up in office. Nixon bandage applied to R hip/thigh and pt discharged in care of family. Pt to take tylenol as needed for pain *DC/Admit/Observation/Transfer Diagnosis at time of Disposition: Thigh hematoma Qualifiers: Encounter type: initial encounter Laterality: right Qualified Code(s): S70.11XA - Contusion of right thigh, initial encounter - Discharge Dispostion Disposition: HOME Condition at time of disposition: Good - Referrals Referrals: Mikel Real MD [Primary Care Provider] - - Patient Instructions Printed Discharge Instructions: DI for Hematoma (Bruise) Additional Instructions: Please keep NIXON bandage in place for swelling and follow up with Dr Krueger in office this week There was a 2.5cm lesion to your right sacrum which correlates with your history of recurrent sarcoma. Dr Real is aware. Please follow up with this week
--- NOTE | 2017-04-19 12:25 | EKG ---
Test Reason : Blood Pressure : / mmHG Vent. Rate : 061 BPM Atrial Rate : 061 BPM P-R Int : 156 ms QRS Dur : 094 ms QT Int : 412 ms P-R-T Axes : 031 001 033 degrees QTc Int : 414 ms NORMAL SINUS RHYTHM NORMAL ECG WHEN COMPARED WITH ECG OF 07-APR-2017 13:31, NO SIGNIFICANT CHANGE WAS FOUND Confirmed by PEDRO CANO MD ([id number]) on 04/19/2017 12:24:49 PM Referred By: Confirmed By:PEDRO CANO MD
[2017-04-19 14:28] VITALS: BP 134/67; PULSE 71
== END 2017-04-19 14:46 | disposition home or self-care (01) ==
LOC: JER 10:27
DX: S70.11XA Contusion of right thigh, initial encounter (principal); W06.XXXA Fall from bed, initial encounter; Y93.89 Activity, other specified; Y92.013 Bedroom of single-family (private) house as the place of occurrence of the external cause; G20 Parkinson's disease; G31.83 Neurocognitive disorder with Lewy bodies; F02.80 Dementia in other diseases classified elsewhere, unspecified severity, without behavioral disturbance, psychotic disturbance, mood disturbance, and anxiety; C49.21 Malignant neoplasm of connective and soft tissue of right lower limb, including hip; Z96.641 Presence of right artificial hip joint
CPT/HCPCS: 36415; 70450-TC; 71010-TC; 72100-TC; 72125-TC; 73523-TC; 73700-TC-RT; 80053; 85025; 85610; 86850; 86900; 86901; 93005; 93010; 99282-25

== ENCOUNTER 2017-09-05 16:51 | Inpatient (IN) | payer OTHER, BC ==
[2017-09-05 16:57] VITALS: BMI 23.7
--- NOTE | 2017-09-05 17:27 | PDOC ---
Attending Attestation - HPI HPI: 09/05/17 18:40 The patient is a 77 year old male with past medical history of liposarcoma and mild dementia who was brought to the ED by his family. As per family, they have come to the agreement that they can no longer provide care for the patient at home and request usp placement for him. They state that the patient has become increasingly incontinent and would benefit more with usp care. They add that they spoke with Dr. Celine Real about their concerns and she is in agreement. She advised family bring patient to ER to be admitted and then placed for usp. - Medical Decision Making 09/05/17 18:44 Documentation prepared by Carol Lozano, acting as certified medical coder for Kristi Morejon MD. <Carol Lozano - Last Filed: 09/05/17 18:44> - Resident Resident Name: Burton Salazar - ED Attending Attestation I have performed the following: I have examined & evaluated the patient, The case was reviewed & discussed with the resident, I agree w/resident's findings & plan, Exceptions are as noted - Physicial Exam PE: GENERAL: Awake, alert, and fully oriented, in no acute distress HEAD: No signs of trauma EYES: PERRLA, EOMI, sclera anicteric, conjunctiva clear ENT: Auricles normal inspection, hearing grossly normal, nares patent, oropharynx clear without exudates. Dry mucosa NECK: Normal ROM, supple, no lymphadenopathy, JVD, or masses LUNGS: Breath sounds equal, clear to auscultation bilaterally. No wheezes, and no crackles HEART: Regular rate and rhythm, normal S1 and S2, no murmurs, rubs or gallops ABDOMEN: Soft, nontender, normoactive bowel sounds. No guarding, no rebound. No masses EXTREMITIES: Normal range of motion, no edema. No clubbing or cyanosis. No cords, erythema, or tenderness NEUROLOGICAL: Cranial nerves II through XII grossly intact. Normal speech. Motor and sensation intact. SKIN: Warm, Dry, normal turgor, no rashes or lesions noted. - Medical Decision Making For admission for failure to thrive, NH placement as per Dr. Real. <Kristi Morejon - Last Filed: 09/08/17 08:41>
--- NOTE | 2017-09-05 17:45 | PDOC ---
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 Past History - Past Medical History Allergies/Adverse Reactions: Allergies Allergy/AdvReac Type Severity Reaction Status Date / Time No Known Allergies Allergy Verified 09/05/17 16:58 Home Medications: Ambulatory Orders Duloxetine HCl [Cymbalta] 30 mg PO BID 04/09/16 Acetaminophen [Tylenol .Regular Strength -] 650 mg PO Q6H PRN #0 tablet Carbidopa/Levodopa *Cr* 25/100 [Sinemet *Cr* 25/100 -] 1 combo PO TIDCM #90 tablet.er 04/30/16 Carvedilol [Coreg -] 3.125 mg PO BID #60 tablet 04/30/16 Hydroxyurea [Hydrea 500Mg Capsule -] 500 mg PO BID #30 capsule 04/30/16 Aspirin Coated [Ecotrin -] 81 mg PO DAILY tablet.ec 05/15/16 Finasteride 5 mg PO DAILY 04/07/17 Quetiapine Fumarate [Seroquel -] 25 mg PO HS 04/07/17 Tamsulosin HCl 0.4 mg PO DAILY 04/07/17 Valsartan [Diovan] 80 mg PO DAILY tablet 04/09/17 Donepezil HCl [Aricept -] 10 mg PO HS 09/05/17 Anemia: No Asthma: No Cancer: Yes (LIPOSARCOMA resection psoas muscle) Cardiac Disorders: No CVA: No COPD: No CHF: No Dementia: Yes (LBD) Diabetes: No GI Disorders: No Disorders: No HTN: Yes Hypercholesterolemia: No Liver Disease: No Seizures: No Thyroid Disease: No Other medical history: PARKINSONS - Surgical History Abdominal Surgery: Yes (HERNIA) Appendectomy: No Cardiac Surgery: No Cholecystectomy: No Lung Surgery: No Neurologic Surgery: No Orthopedic Surgery: No - Suicide/Smoking/Psychosocial Hx Smoking Status: No Smoking History: Never smoked Have you smoked in the past 12 months: Yes Number of Cigarettes Smoked Daily: 0 If you are a former smoker, when did you quit?: 1989 Alcohol Use: No Drug/Substance Use Hx: No Substance Use Type: None Hx Substance Use Treatment: No Review of Systems - Review of Systems Able to Perform ROS?: Yes Constitutional: Yes: Weakness. No: Symptoms Reported HEENTM: No: Symptoms Reported Respiratory: No: Symptoms reported Cardiac (ROS): No: Symptoms Reported ABD/GI: Yes: Constipated : No: Symptoms Reported Musculoskeletal: No: Symptoms Reported Integumentary: No: Symptoms Reported Neurological: No: Symptoms reported *Physical Exam - Vital Signs Last Vital Signs Temp Pulse Resp BP Pulse Ox 97.7 F 65 20 169/77 97 09/05/17 16:53 09/05/17 16:53 09/05/17 16:53 09/05/17 16:53 09/05/17 16:53 - Physical Exam General Appearance: Yes: Nourished, Appropriately Dressed. No: Apparent Distress HEENT: positive: EOMI, ELVIN. negative: Normal ENT Inspection Neck: negative: Tender Respiratory/Chest: positive: Lungs Clear, Normal Breath Sounds. negative: Chest Tender Cardiovascular: positive: Regular Rhythm, Regular Rate, S1, S2 Gastrointestinal/Abdominal: positive: Normal Bowel Sounds, Soft, Distended. negative: Tender, Guarding Neurologic: positive: Alert. negative: Fully Oriented ED Treatment Course - LABORATORY CBC & Chemistry Diagram: 09/05/17 17:51 09/05/17 17:51 Medical Decision Making - Medical Decision Making 09/05/17 21:14 77M presenting to the ER for admission to halfway. 09/05/17 21:15 Labs and chest xray sent Spoke to Celine mcgill with agreed to admit patient to her at this time. *DC/Admit/Observation/Transfer Diagnosis at time of Disposition: Encounter for halfway hospice care, Failure to thrive in adult - Discharge Dispostion Admit: Yes - Referrals - Patient Instructions - Post Discharge Activity
[2017-09-05 18:04] LABS: EOSINOPHIL 1.2 % (0-4.5); MCH 30.5 pg (25.7-33.7); MCHC 32.4 g/dl (32.0-35.9); MEAN CELL VOLUME 94.1 fl (80-96); MEAN PLT VOLUME 10.4 fl (7.5-11.1); NEUTROPHILS 74.6 % (42.8-82.8); PLATELET COUNT 415 K/MM3 (134-434); RDW 17.7 % (11.9-15.9); WHITE BLOOD COUNT 8.4 K/mm3 (4.0-10.0)
[2017-09-05 18:36] LABS: ALBUMIN 3.6 g/dl (3.4-5.0); ALK PHOS 94 U/L (45-117); ANION GAP 7 (8-16); BILIRUBIN,TOTAL 0.6 mg/dL (0.2-1.0); CALCIUM 7.9 mg/dL (8.5-10.1); CO2 28 mmol/L (21-32); CREATININE 0.8 mg/dL (0.7-1.3); GLUCOSE,RANDOM 102 mg/dL (74-106); SGOT/AST 16 U/L (15-37); SGPT/ALT 14 U/L (12-78); TOT PROT 6.4 g/dl (6.4-8.2)
[2017-09-05] MEDS ORDERED: ACETAMINOPHEN 325 MG TABLET (FP) PO PRN (20:20)
[2017-09-05] MEDS: CARVEDILOL 3.125 MG TABLET (FP) PO SCH (21:03)
[2017-09-05] MEDS: DULoxetine HCL 30 MG CAPSULE.DR (FP) PO SCH (21:04)
[2017-09-05] MEDS: HEPARIN NA (PORCINE) 5,000 UNITS/ML 1ML VIAL SQ SCH (21:04)
[2017-09-05] MEDS: QUEtiapine FUMARATE 25 MG TABLET (FP) PO SCH (21:04)
[2017-09-05] MEDS ORDERED: HYDROXYUREA 500 MG CAPSULE PO SCH (22:00)
[2017-09-05 23:01] LABS: URINE APPEARANCE CLEAR; URINE BILIRUBIN NEGATIVE (NEGATIVE); URINE BLOOD NEGATIVE (NEGATIVE); URINE COLOR YELLOW; URINE GLUCOSE (UA) NEGATIVE (NEGATIVE); URINE KETONE TRACE (NEGATIVE); URINE NITRITE NEGATIVE (NEGATIVE); URINE PROTEIN NEGATIVE (NEGATIVE); URINE UROBILINOGEN NEGATIVE mg/dL (0.2-1.0)
--- NOTE | 2017-09-06 07:12 | HP ---
Admitting History and Physical - Primary Care Physician PCP: Celine Real S - Admission Chief Complaint: weakness failure to thrive History of Present Illness: 77M with liposarcoma, MDS, Parkinson, HTN, BPH and lewy body dementia who was brought to the ED by his family.There is an increasing difficulty of taking care of the patient at home per and daughter despite having a 24h ADAPTIVE PHYSICAL EDUCATOR at home private paid so the family brought the patient to the ED and have him admitted due to increased weakness, failure to thrive and incontinence; neurology breanne and ed case manager breanne to eventually have him admitted to a alf. 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: Yes: CVA, Dementia Cardiovascular: Yes: Aortic Insufficiency, HTN, Pulmonary Hypertension ( moderate (2016 ECHO)) Pulmonary: Yes: COPD Renal/: Yes: BPH Heme/Onc: Yes: Myeloproliferative Synd, Other (sarcoma) - Smoking History Smoking history: Never smoked Have you smoked in the past 12 months: Yes Aproximately how many cigarettes per day: 0 If you are a former smoker, when did you quit?: 1989 - Alcohol/Substance Use Hx Alcohol Use: No History of Substance Use: reports: Marijuana - Social History Usual Living Arrangement: Yes: With Spouse ADL: Family Assistance 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, [employer]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[place] History of Recent Travel: No Home Medications - Allergies Allergies/Adverse Reactions: Allergies Allergy/AdvReac Type Severity Reaction Status Date / Time No Known Allergies Allergy Verified 09/05/17 16:58 - Home Medications Home Medications: Ambulatory Orders Duloxetine HCl [Cymbalta] 30 mg PO BID 04/09/16 Acetaminophen [Tylenol .Regular Strength -] 650 mg PO Q6H PRN #0 tablet Carbidopa/Levodopa *Cr* 25/100 [Sinemet *Cr* 25/100 -] 1 combo PO TIDCM #90 tablet.er 04/30/16 Carvedilol [Coreg -] 3.125 mg PO BID #60 tablet 04/30/16 Hydroxyurea [Hydrea 500Mg Capsule -] 500 mg PO BID #30 capsule 04/30/16 Aspirin Coated [Ecotrin -] 81 mg PO DAILY tablet.ec 05/15/16 Finasteride 5 mg PO DAILY 04/07/17 Quetiapine Fumarate [Seroquel -] 25 mg PO HS 04/07/17 Tamsulosin HCl 0.4 mg PO DAILY 04/07/17 Valsartan [Diovan] 80 mg PO DAILY tablet 04/09/17 Donepezil HCl [Aricept -] 10 mg PO HS 09/05/17 Family Disease History - Family Disease History Family History: Unremarkable Review of Systems - Review of Systems Constitutional: denies: Chills, Fever, Lethargy Eyes: denies: Double Vision, Eye Pain HENT: denies: Difficult Swallowing, Epistaxis Neck: denies: Stiffness, Tenderness Cardiovascular: denies: Chest Pain, Shortness of Breath Respiratory: denies: Cough, SOB Gastrointestinal: denies: Abdominal Pain, Constipation, Diarrhea, Melena, Rectal Bleeding, Vomiting Genitourinary: denies: Dysuria, Flank Pain Musculoskeletal: denies: Back Pain, Joint Swelling Integumentary: denies: Eczema, Wound Neurological: reports: Confusion, Unsteady Gait, Weakness. denies: Change in LOC, Seizure, Syncope Endocrine: denies: Excessive Sweating, Flushing Hematology/Lymphatic: denies: Easily Bruised, Excessive Bleeding Psychiatric: denies: Altered Sleep Pattern, Anxiety, Depression Physical Examination Vital Signs: Vital Signs Temperature 98 F 09/06/17 06:00 Pulse Rate 60 09/06/17 06:00 Respiratory Rate 18 09/06/17 06:00 Blood Pressure 150/78 09/06/17 06:00 O2 Sat by Pulse Oximetry (%) 98 09/05/17 21:00 Constitutional: Yes: No Distress, Calm Eyes: Yes: Conjunctiva Clear HENT: Yes: Atraumatic Neck: Yes: Supple Cardiovascular: Yes: Regular Rate and Rhythm Respiratory: Yes: CTA Bilaterally Gastrointestinal: Yes: Soft. No: Distention, Tenderness Renal/: No: CVA Tenderness - Left, CVA Tenderness - Right, Hematuria Musculoskeletal: No: Joint Stiffness, Joint Swelling Extremities: No: Cold, Cool, Cyanosis Edema: No Integumentary: No: Rash, Venous Stasis Changes Neurological: Yes: Alert. No: Oriented ...Motor Strength: WNL Psychiatric: Yes: Alert. No: Oriented, Agitated, Suicidal Ideation Labs: CBC, BMP 09/05/17 17:51 09/05/17 17:51 Imaging - Results Chest X-ray: Report Reviewed Other: Report Reviewed Assessment/Plan 77M with liposarcoma, MDS, Parkinson, HTN HLP BPH, and lewy body dementia who was brought to the ED by his family for failure to thrive and general weakness neurology eval PT and CM eval r/o UTI continue meds falls PFX eval for SNF/NH placement d/w pt and family and staff
[2017-09-06 08:48] LABS: THYROID STIMULATING HORMONE 3.05 uIU/ml (0.358-3.74)
[2017-09-06] MEDS: TAMSULOSIN HCL 0.4 MG CAP.ER.24H (FP) PO SCH (09:05)
[2017-09-06] MEDS: CARVEDILOL 3.125 MG TABLET (FP) PO SCH ×2 (10:24→21:23)
[2017-09-06] MEDS: ASPIRIN COATED 81 MG TABLET.EC PO SCH (10:24)
[2017-09-06] MEDS: DULoxetine HCL 30 MG CAPSULE.DR (FP) PO SCH ×2 (10:24→21:23)
[2017-09-06] MEDS: FINASTERIDE 5 MG TABLET (FP) PO SCH (10:24)
[2017-09-06] MEDS: VALSARTAN 80 MG TABLET (UD) PO SCH (10:24)
[2017-09-06] MEDS: HEPARIN NA (PORCINE) 5,000 UNITS/ML 1ML VIAL SQ SCH ×2 (10:24→21:24)
[2017-09-06] MEDS ORDERED: PT OWN MED DRAWER 7, Y5N ONE ×2 (10:25→21:07)
[2017-09-06] MEDS: HYDROXYUREA 500 MG CAPSULE PO SCH (10:26)
[2017-09-06 11:41] LABS: URINE LEUK ESTERASE Negative (NEGATIVE)
--- NOTE | 2017-09-06 11:44 | EKG ---
Test Reason : Blood Pressure : / mmHG Vent. Rate : 058 BPM Atrial Rate : 058 BPM P-R Int : 148 ms QRS Dur : 096 ms QT Int : 428 ms P-R-T Axes : 056 011 045 degrees QTc Int : 420 ms SINUS BRADYCARDIA OTHERWISE NORMAL ECG WHEN COMPARED WITH ECG OF 19-APR-2017 11:01, NO SIGNIFICANT CHANGE WAS FOUND Confirmed by LOY GUNDERSON MD ([id number]) on 09/06/2017 11:43:58 AM Referred By: Confirmed By:LOY GUNDERSON MD
--- NOTE | 2017-09-06 17:14 | CON.NEURO ---
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 Seen by [facility] in past, was admitted in 04/03 for confusion and Parkinson RX adjusted. As per chart, the increasing difficulty of taking care of the patient at home- increased weakness, failure to thrive and incontinence. 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 Cardio/Vascular: Yes: Aortic Insufficiency, HTN, Pulmonary Hypertension ( moderate (2016 ECHO)) Pulmonary: Yes: COPD Renal/: Yes: BPH - Alcohol/Substance Use Hx Alcohol Use: No History of Substance Use: reports: Marijuana - Smoking History Smoking history: Never smoked Have you smoked in the past 12 months: Yes Aproximately how many cigarettes per day: 0 If you are a former smoker, when did you quit?: 1989 - Social 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, [employer]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[employer] History of Recent Travel: No Home Medications - Allergies Allergies/Adverse Reactions: Allergies Allergy/AdvReac Type Severity Reaction Status Date / Time No Known Allergies Allergy Verified 09/05/17 16:58 - Home Medications Home Medications: Ambulatory Orders Duloxetine HCl [Cymbalta] 30 mg PO BID 04/09/16 Acetaminophen [Tylenol .Regular Strength -] 650 mg PO Q6H PRN #0 tablet Carbidopa/Levodopa *Cr* 25/100 [Sinemet *Cr* 25/100 -] 1 combo PO TIDCM #90 tablet.er 04/30/16 Carvedilol [Coreg -] 3.125 mg PO BID #60 tablet 04/30/16 Hydroxyurea [Hydrea 500Mg Capsule -] 500 mg PO BID #30 capsule 04/30/16 Aspirin Coated [Ecotrin -] 81 mg PO DAILY tablet.ec 05/15/16 Finasteride 5 mg PO DAILY 04/07/17 Quetiapine Fumarate [Seroquel -] 25 mg PO HS 04/07/17 Tamsulosin HCl 0.4 mg PO DAILY 04/07/17 Valsartan [Diovan] 80 mg PO DAILY tablet 04/09/17 Donepezil HCl [Aricept -] 10 mg PO HS 09/05/17 Physical Exam-Neuro Vital Signs: Vital Signs Temperature 97.7 F 09/06/17 13:04 Pulse Rate 63 09/06/17 13:04 Respiratory Rate 18 09/06/17 13:04 Blood Pressure 143/70 09/06/17 13:04 O2 Sat by Pulse Oximetry (%) 98 09/06/17 09:00 Labs: CBC, BMP 09/05/17 17:51 09/05/17 17:51 - Neuro Exam Level Of Consciousness: Yes: Alert (awake and conversive , [facility], yr, month, follows 2 steps, EOMI, slow saccades, no facial, motor + cogwheeling, min tremor, inc tone in LE ) Problem List - Problems (1) Lewy body dementia Code(s): G31.83 - DEMENTIA WITH LEWY BODIES; F02.80 - DEMENTIA IN OTH DISEASES CLASSD ELSWHR W/O BEHAVRL DISTURB (2) Failure to thrive in adult Code(s): R62.7 - ADULT FAILURE TO THRIVE (3) Myeloproliferative disease Code(s): D47.1 - CHRONIC MYELOPROLIFERATIVE DISEASE Assessment/Plan AP: 77M with liposarcoma and with known Dx of lewy body dementia diff ambulating x 2 months and incontinence Primary Neuro Dr Lopez @ [facility] at this juncture LBD (no sig tremor) appears stable though ambulation and incontinence and general deterioration/FTT daughter and interested in placement - [facility] can reduce Aricept 5 ( ? making incontinence worse) maintain Sinemet and Seroquel for now rehab eval thanks for including us in his care Dr Donato
[2017-09-06] MEDS: QUEtiapine FUMARATE 25 MG TABLET (FP) PO SCH (21:24)
[2017-09-07 03:24] LABS: URINE APPEARANCE CLEAR; URINE BILIRUBIN NEGATIVE (NEGATIVE); URINE BLOOD NEGATIVE (NEGATIVE); URINE COLOR YELLOW; URINE GLUCOSE (UA) NEGATIVE (NEGATIVE); URINE KETONE NEGATIVE (NEGATIVE); URINE NITRITE NEGATIVE (NEGATIVE); URINE PROTEIN NEGATIVE (NEGATIVE); URINE UROBILINOGEN NEGATIVE mg/dL (0.2-1.0)
[2017-09-07 09:02] LABS: URINE LEUK ESTERASE Negative (NEGATIVE)
[2017-09-07] MEDS: TAMSULOSIN HCL 0.4 MG CAP.ER.24H (FP) PO SCH (10:02)
[2017-09-07] MEDS: CARVEDILOL 3.125 MG TABLET (FP) PO SCH ×2 (10:02→21:07)
[2017-09-07] MEDS: FINASTERIDE 5 MG TABLET (FP) PO SCH (10:02)
[2017-09-07] MEDS: DULoxetine HCL 30 MG CAPSULE.DR (FP) PO SCH ×2 (10:02→21:08)
[2017-09-07] MEDS: ASPIRIN COATED 81 MG TABLET.EC PO SCH (10:02)
[2017-09-07] MEDS: VALSARTAN 80 MG TABLET (UD) PO SCH (10:02)
[2017-09-07] MEDS: HEPARIN NA (PORCINE) 5,000 UNITS/ML 1ML VIAL SQ SCH ×2 (10:03→21:07)
--- NOTE | 2017-09-07 10:54 | PN ---
Progress Note, Physician Chief Complaint: OOB to WC in good spirits no new c/o; UCx with low growth bacteria on levaquin x 5 days - Current Medication List Current Medications: Active Medications Acetaminophen (Tylenol -) 650 mg PO Q6H PRN PRN Reason: FEVER OR PAIN Aspirin (Ecotrin -) 81 mg PO DAILY [facility] Last Admin: 09/07/17 10:02 Dose: 81 mg Carbidopa/Levodopa (Sinemet *Cr* 25/100 -) 1 combo PO TIDCM [facility] Last Admin: 09/07/17 10:03 Dose: 1 combo Carvedilol (Coreg -) 3.125 mg PO BID [facility] Last Admin: 09/07/17 10:02 Dose: 3.125 mg Duloxetine HCl (Cymbalta -) 30 mg PO BID [facility] Last Admin: 09/07/17 10:02 Dose: 30 mg Finasteride (Proscar -) 5 mg PO DAILY [facility] Last Admin: 09/07/17 10:02 Dose: 5 mg Heparin Sodium (Porcine) (Heparin -) 5,000 unit SQ BID [facility] Last Admin: 09/07/17 10:03 Dose: 5,000 unit Hydroxyurea (Hydrea -) 500 mg PO DAILY [facility] Last Admin: 09/06/17 10:26 Dose: 500 mg Quetiapine Fumarate (Seroquel -) 25 mg PO HS [facility] Last Admin: 09/06/17 21:24 Dose: 25 mg Tamsulosin HCl (Flomax -) 0.4 mg PO DAILY@0830 [facility] Last Admin: 09/07/17 10:02 Dose: 0.4 mg Valsartan (Diovan -) 80 mg PO DAILY [facility] Last Admin: 09/07/17 10:02 Dose: 80 mg - Objective Vital Signs: Vital Signs Temperature 97.2 F L 09/07/17 07:33 Pulse Rate 57 L 09/07/17 07:33 Respiratory Rate 18 09/07/17 07:33 Blood Pressure 166/79 09/07/17 07:33 O2 Sat by Pulse Oximetry (%) 96 09/06/17 21:00 Constitutional: Yes: No Distress, Calm Eyes: Yes: Conjunctiva Clear HENT: Yes: Atraumatic Neck: Yes: Supple Cardiovascular: Yes: Regular Rate and Rhythm Respiratory: Yes: CTA Bilaterally Gastrointestinal: Yes: Soft. No: Distention Genitourinary: No: CVA Tenderness - Left, CVA Tenderness - Right Musculoskeletal: No: Joint Stiffness, Joint Swelling Extremities: No: Cold, Cool Edema: No Integumentary: No: Rash, Venous Stasis Changes Neurological: Yes: WNL, Alert ...Motor Strength: WNL Psychiatric: Yes: WNL, Alert. No: Agitated Labs: CBC, BMP 09/05/17 17:51 09/05/17 17:51 - ....Imaging Other: Report Reviewed Assessment/Plan 77M with liposarcoma, MDS, Parkinson, HTN HLP BPH, and lewy body dementia who was brought to the ED by his family for failure to thrive and general weakness neurology f/u UTI on levaquin PT and CM eval continue meds falls PFX eval for SNF/NH placement d/w pt and staff
[2017-09-07] MEDS: LEVOFLOXACIN 250 MG TABLET (FP) PO SCH (14:16)
--- NOTE | 2017-09-07 17:05 | PN ---
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 Seen by [facility] in past, was admitted in 04/03 for confusion and Parkinson RX adjusted. As per chart, the increasing difficulty of taking care of the patient at home- increased weakness, failure to thrive and incontinence. 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: CVA, Dementia Cardio/Vascular: Yes: Aortic Insufficiency, HTN, Pulmonary Hypertension ( moderate (2016 ECHO)) Pulmonary: Yes: COPD Renal/: Yes: BPH - Alcohol/Substance Use Hx Alcohol Use: No History of Substance Use: reports: Marijuana - Smoking History Smoking history: Never smoked Have you smoked in the past 12 months: Yes Aproximately how many cigarettes per day: 0 If you are a former smoker, when did you quit?: 1989 - Social 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, [employer]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[place] History of 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 Travel: No Home Medications - Allergies Allergies/Adverse Reactions: Allergies Allergy/AdvReac Type Severity Reaction Status Date / Time No Known Allergies Allergy Verified 09/05/17 16:58 - Home Medications Home Medications: Ambulatory Orders Duloxetine HCl [Cymbalta] 30 mg PO BID 04/09/16 Acetaminophen [Tylenol .Regular Strength -] 650 mg PO Q6H PRN #0 tablet Carbidopa/Levodopa *Cr* 25/100 [Sinemet *Cr* 25/100 -] 1 combo PO TIDCM #90 tablet.er 04/30/16 Carvedilol [Coreg -] 3.125 mg PO BID #60 tablet 04/30/16 Hydroxyurea [Hydrea 500Mg Capsule -] 500 mg PO BID #30 capsule 04/30/16 Aspirin Coated [Ecotrin -] 81 mg PO DAILY tablet.ec 05/15/16 Finasteride 5 mg PO DAILY 04/07/17 Quetiapine Fumarate [Seroquel -] 25 mg PO HS 04/07/17 Tamsulosin HCl 0.4 mg PO DAILY 04/07/17 Valsartan [Diovan] 80 mg PO DAILY tablet 04/09/17 Donepezil HCl [Aricept -] 10 mg PO HS 09/05/17 Physical Exam-Neuro Vital Signs: \ Vital Signs Temperature 98 F 09/07/17 13:52 Pulse Rate 60 09/07/17 13:52 Respiratory Rate 17 09/07/17 13:52 Blood Pressure 146/75 09/07/17 13:52 O2 Sat by Pulse Oximetry (%) 96 09/06/17 21:00 Labs: CBC, BMP 09/05/17 17:51 09/05/17 17:51 - Neuro Exam Level Of Consciousness: Yes: Alert (awake and conversive , [facility], yr, month, follows 2 steps, EOMI, slow saccades, no facial, motor + cogwheeling, min tremor, inc tone in LE ) Problem List - Problems (1) Lewy body dementia Code(s): G31.83 - DEMENTIA WITH LEWY BODIES; F02.80 - DEMENTIA IN OTH DISEASES CLASSD ELSWHR W/O BEHAVRL DISTURB (2) Failure to thrive in adult Code(s): R62.7 - ADULT FAILURE TO THRIVE (3) Myeloproliferative disease Code(s): D47.1 - CHRONIC MYELOPROLIFERATIVE DISEASE Assessment/Plan AP: 77M with liposarcoma and with known Dx of lewy body dementia diff ambulating x 2 months and incontinence Primary Neuro Dr Lopez @ [facility] at this juncture LBD (no sig tremor) appears stable though ambulation and incontinence and general deterioration/FTT daughter and interested in placement - [facility] can reduce Aricept 5 ( ? making incontinence worse) maintain Sinemet and Seroquel for now cleared for rehab Dr Donato Problem List - Problems (1) Lewy body dementia Code(s): G31.83 - DEMENTIA WITH LEWY BODIES; F02.80 - DEMENTIA IN OTH DISEASES CLASSD ELSWHR W/O BEHAVRL DISTURB (2) Failure to thrive in adult Code(s): R62.7 - ADULT FAILURE TO THRIVE (3) Myeloproliferative disease Code(s): D47.1 - CHRONIC MYELOPROLIFERATIVE DISEASE
[2017-09-07] MEDS: HYDROXYUREA 500 MG CAPSULE PO SCH (17:27)
[2017-09-07] MEDS: QUEtiapine FUMARATE 25 MG TABLET (FP) PO SCH (21:07)
[2017-09-07] MEDS ORDERED: DONEPEZIL HCL 5 MG TABLET (FP) PO SCH (22:00)
[2017-09-08] MEDS: LEVOFLOXACIN 250 MG TABLET (FP) PO SCH (05:53)
--- NOTE | 2017-09-08 06:37 | DS ---
Physical Examination Vital Signs: Vital Signs Temperature 97.9 F 09/08/17 06:35 Pulse Rate 57 L 09/08/17 06:35 Respiratory Rate 20 09/08/17 06:35 Blood Pressure 147/76 09/08/17 06:35 O2 Sat by Pulse Oximetry (%) 96 09/07/17 20:29 Findings/Remarks: OOB to WC feeling well no c/o at bedside awaiting transfer to [place] today Constitutional: Yes: No Distress, Calm Eyes: Yes: Conjunctiva Clear HENT: Yes: Atraumatic Neck: Yes: Supple Cardiovascular: Yes: Regular Rate and Rhythm Respiratory: Yes: CTA Bilaterally Gastrointestinal: Yes: Soft. No: Distention Renal/: No: CVA Tenderness - Left, CVA Tenderness - Right Musculoskeletal: No: Joint Stiffness, Joint Swelling Extremities: No: Cold, Cool, Cyanosis Edema: No Integumentary: No: Rash, Venous Stasis Changes Neurological: Yes: WNL, Alert ...Motor Strength: WNL Psychiatric: Yes: WNL, Alert. No: Agitated, Suicidal Ideation Labs: CBC, BMP 09/05/17 17:51 09/05/17 17:51 Discharge Summary Reason For Visit: ENCOUNTER FOR [facility]ARE Current Active Problems Encounter for skilled nursing hospice care (Acute) Failure to thrive in adult (Acute) Lewy body dementia (Acute) Procedures: Principal: admitted with failure to thrive, UTI Other Procedures: h/o Lewy bodies dementia, Parkinson dementia. MDS, OA DJD Hospital Course: po levaquin for UTI; seen by neurology; PT rehab and CM for NH placement d/w pt and they agreed with plan Condition: Stable - Instructions Referrals: Celine Real [Primary Care Provider] - Disposition: [facility] - Home Medications Comprehensive Discharge Medication List: Ambulatory Orders Duloxetine HCl [Cymbalta] 30 mg PO BID 04/09/16 Acetaminophen [Tylenol .Regular Strength -] 650 mg PO Q6H PRN #0 tablet Carbidopa/Levodopa *Cr* 25/100 [Sinemet *Cr* 25/100 -] 1 combo PO TIDCM #90 tablet.er 04/30/16 Carvedilol [Coreg -] 3.125 mg PO BID #60 tablet 04/30/16 Hydroxyurea [Hydrea 500Mg Capsule -] 500 mg PO BID #30 capsule 04/30/16 Aspirin Coated [Ecotrin -] 81 mg PO DAILY tablet.ec 05/15/16 Finasteride 5 mg PO DAILY 04/07/17 Quetiapine Fumarate [Seroquel -] 25 mg PO HS 04/07/17 Tamsulosin HCl 0.4 mg PO DAILY 04/07/17 Valsartan [Diovan] 80 mg PO DAILY tablet 04/09/17 Donepezil HCl [Aricept -] 10 mg PO HS 09/05/17
[2017-09-08] MEDS: TAMSULOSIN HCL 0.4 MG CAP.ER.24H (FP) PO SCH (08:03)
[2017-09-08 10:15] VITALS: BP 147/80; PULSE 71; TEMP 98.2
[2017-09-08] MEDS ORDERED: PT OWN MED DRAWER 7, Y5N ONE (10:59)
[2017-09-08] MEDS: HEPARIN NA (PORCINE) 5,000 UNITS/ML 1ML VIAL SQ SCH (11:04)
[2017-09-08] MEDS: HYDROXYUREA 500 MG CAPSULE PO SCH (11:05)
[2017-09-08] MEDS: ASPIRIN COATED 81 MG TABLET.EC PO SCH (11:05)
[2017-09-08] MEDS: CARVEDILOL 3.125 MG TABLET (FP) PO SCH (11:05)
[2017-09-08] MEDS: FINASTERIDE 5 MG TABLET (FP) PO SCH (11:05)
[2017-09-08] MEDS: DULoxetine HCL 30 MG CAPSULE.DR (FP) PO SCH (11:05)
[2017-09-08] MEDS: VALSARTAN 80 MG TABLET (UD) PO SCH (11:05)
== END 2017-09-08 14:01 | DRG 57 ==
LOC: JER 16:51 → JERBED 18:01 → J6S 19:19
PROVIDERS: ADMIT Internal Medicine; ATTEND Internal Medicine
DX: G31.83 Neurocognitive disorder with Lewy bodies (principal); N39.0 Urinary tract infection, site not specified; R44.3 Hallucinations, unspecified; D47.1 Chronic myeloproliferative disease; R62.7 Adult failure to thrive; B96.20 Unspecified Escherichia coli [E. coli] as the cause of diseases classified elsewhere; B96.4 Proteus (mirabilis) (morganii) as the cause of diseases classified elsewhere; R53.1 Weakness; Z75.1 Person awaiting admission to adequate facility elsewhere; I10 Essential (primary) hypertension; I27.20 Pulmonary hypertension, unspecified; J44.9 Chronic obstructive pulmonary disease, unspecified; F02.80 Dementia in other diseases classified elsewhere, unspecified severity, without behavioral disturbance, psychotic disturbance, mood disturbance, and anxiety; Z87.891 Personal history of nicotine dependence; Z85.89 Personal history of malignant neoplasm of other organs and systems; K59.00 Constipation, unspecified; N40.0 Benign prostatic hyperplasia without lower urinary tract symptoms; R32 Unspecified urinary incontinence; I35.1 Nonrheumatic aortic (valve) insufficiency; F12.10 Cannabis abuse, uncomplicated; E78.5 Hyperlipidemia, unspecified
CPT/HCPCS: 36415; 71010-TC; 80053; 81003; 82607; 84443; 85025; 86593; 86780; 87086; 87186; 93005; 93010; 97116-GP; 97161-GP; 99282-25; J1644; J8999